=== PATIENT | female | born 1960 | race Caucasian/White ===

== ENCOUNTER → 2018-01-07 10:28 | Outpatient (CLI) | payer MEDICARE, SELFPAY | PROVIDERS: Visit Provider Physician Assistant | DX: R82.90 Unspecified abnormal findings in urine (principal) | CPT/HCPCS: 87086 ==

== ENCOUNTER → 2018-01-08 07:11 | Outpatient (CLI) | payer MEDICARE, SELFPAY ==
[2018-01-08 08:12] LABS: Add Manual Diff / Slide Review NO; Basophils Percent Auto 0.7 % (0-2); Eosinophils Percent Auto 2.7 % (2-4); Hematocrit 49.6 % (36-46); Hemoglobin 16.7 g/dL (12.0-16.0); Lymphocytes Percent Auto 28.3 % (25-40); Mean Corpuscular HGB Conc 33.7 % (30-36); Mean Corpuscular Hemoglobin 31.6 PG (26-34); Mean Corpuscular Volume 93.7 fL (80-100); Monocytes Percent Auto 9.5 % (3-14); Neutrophils Absolute Auto 4300 /uL (3000-5900); Neutrophils Percent Auto 58.8 % (50-75); Platelet Count 227 X10^3/uL (150-400); Red Blood Cell Count 5.29 X10^6/uL (4.0-5.2); Red Cell Distribution Width 13.8 % (11.6-14.8); White Blood Cell Count 7.4 X10^3/uL (4.5-11.0)
[2018-01-08 08:24] LABS: Alanine Aminotransferase 20 IU/L (9-52); Albumin 4.3 g/dL (3.5-5.0); Albumin Globulin Ratio 1.4 (1.0-2.8); Alkaline Phosphatase 130 U/L (38-126); Amylase 89 U/L (30-110); Aspartate Aminotransferase 19 IU/L (14-36); BUN Creatinine Ratio 31.7 (6-22); Bilirubin Total 0.4 mg/dL (0.2-1.3); Blood Urea Nitrogen 19 mg/dL (7-17); C-Reactive Protein Quant < 0.5 mg/dL (<1.0); Calcium 9.7 mg/dL (8.4-10.2); Carbon Dioxide 34 mmol/L (22-32); Chloride 101 mmol/L (98-107); Estimated Glomerular Filt Rate > 60.0 mL/min (>60); Globulin 3.1 g/dL (1.7-4.1); Glucose 71 mg/dL (70-100); HEMOLYSIS < 15 (0-50); Lipase 141 U/L (23-300); Potassium 4.4 mmol/L (3.4-5.1); Sodium 143 mmol/L (137-145); Total Protein 7.4 g/dL (6.3-8.2)
[2018-01-08 08:30] LABS: Erythrocyte Sedimentation Rate 1 MM/HR (0-20)
[2018-01-08 09:19] LABS: Hepatitis B Surface Antigen NEGATIVE s/c (NEGATIVE)
[2018-01-08 09:36] LABS: Hep C Virus Ab w/Reflex Quant NEGATIVE s/c (NEGATIVE)
== END ==
PROVIDERS: Visit Provider Physician Assistant
DX: R10.9 Unspecified abdominal pain (principal)
CPT/HCPCS: 36415; 80053; 82150; 83690; 85025; 85651; 86140; 86803; 87340

== ENCOUNTER → 2018-01-11 07:40 | Outpatient (CLI) | payer MEDICARE, SELFPAY ==
--- NOTE | 2018-01-11 07:42 | DI.US.S_ITS ---
PROCEDURE: US ABDOMEN COMPLETE INDICATIONS: PAIN TECHNIQUE: Real-time scanning was performed of the abdominal and retroperitoneal organs, with image documentation. COMPARISON: [facility], CT, ABDOMEN/PELVIS WITH CONTRAST, 02/02/2012, 23:04. [facility], CT, ABDOMEN/PELVIS WITH CONTRAST, 02/09/2012, 12:11. [facility], US, ABDOMEN COMPLETE, 01/28/2012, 12:10. FINDINGS: Liver: Liver is normal in size and homogeneous in echotexture. Gallbladder: Gallbladder has been removed. No pericholecystic fluid. Biliary ducts: Intrahepatic bile ducts are non-dilated. Extrahepatic bile duct caliber measures 9.8 mm. Normal is 6-7 mm or less in diameter, or 10 mm or less post-cholecystectomy. Pancreas: Visualized portions of the pancreas are sonographically normal. Spleen: Spleen is normal in size and homogeneous in echotexture. Kidneys: Kidneys are normal in size and echotexture. Right kidney measures 11.3 cm long; left kidney measures 9.3 cm long. No hydronephrosis or nephrolithiasis. No solid masses. There is a 13 x 11 x 12 mm focus hypoechogenicity within the posterior inferior cortex, suggestive of cyst. Aorta: Visualized aorta is normal in caliber at less than 3 cm. Iliacs: Proximal common iliac arteries are normal in caliber at less than 2.5 cm. IVC: Intrahepatic inferior vena cava is patent. Miscellaneous: No free abdominal fluid. IMPRESSION: 1. No visualized cause of acute pain. 2. Cholecystectomy. There is mild prominence of the common bile duct. This is suspected to be post surgical sequela. However, prior exam dated 02/09/12 also demonstrated biliary dilation with a biliary stent. If clinical concern is present, recommend correlation to laboratory enzyme values. Dictated by: Andreina Amin M.D. on 01/11/2018 at 9:14 Approved by: Andreina Amin M.D. on 01/11/2018 at 9:17
== END ==
PROVIDERS: Visit Provider Physician Assistant
DX: R10.9 Unspecified abdominal pain (principal)
CPT/HCPCS: 76700

== ENCOUNTER → 2018-02-16 06:58 | Outpatient (CLI) | payer MEDICARE, SELFPAY ==
[2018-02-16 09:35] LABS: Vitamin B12 464 pg/mL (239-931)
== END ==
PROVIDERS: Visit Provider Nurse Practitioner
DX: R61 Generalized hyperhidrosis (principal); R10.9 Unspecified abdominal pain; E53.8 Deficiency of other specified B group vitamins
CPT/HCPCS: 36415; 82607; 84443

== ENCOUNTER → 2018-03-09 10:11 | Outpatient (CLI) | payer MEDICARE, SELFPAY ==
--- NOTE | 2018-03-09 10:56 | DI.CT.S_ITS ---
PROCEDURE: CT ABDOMEN PELVIS W CON INDICATIONS: ABDOMINAL PAIN, WEIGHT LOSS, LOSS OF APPETITE TECHNIQUE: After the administration of oral and intravenous contrast, 5 mm thick sections acquired from the diaphragms to the symphysis. 5 mm thick coronal and sagittal reformats were performed. For radiation dose reduction, the following was used: automated exposure control, adjustment of mA and/or kV according to patient size. COMPARISON: [facility], CT, ABDOMEN/PELVIS WITH CONTRAST, 02/09/2012, 12:11. FINDINGS: Image quality: Excellent. ABDOMEN: Lung bases: Lung bases are clear. Heart size is normal. Solid organs: Liver is normal in size and enhancement. Gallbladder surgically absent. Dilated extra and intrahepatic bile ducts are seen however this could be in part due to prior cholecystectomy. Appearance is grossly unchanged to mildly improved since 02/09/12. Pancreas enhances normally. Spleen is normal in size and enhancement. No adrenal nodules. There is bilateral cortical scarring and mild atrophy. No hydronephrosis. Malrotation of right kidney, chronic subcentimeter presumed right renal cyst image 43 although technically too small to characterize definitively. Peritoneum and bowel: Possible esophageal wall thickening at the GE junction although technically nonspecific and further evaluation with endoscopy could be performed. Stomach, small bowel, and colon loops are normal in caliber and wall thickness. No free fluid or air. The appendix is normal. Scattered colonic diverticula scattered air-fluid levels in the small bowel and mildly prominent small bowel loops however no definite obstruction seen at this time. Nodes and vessels: No retroperitoneal or mesenteric adenopathy. Aorta and inferior vena cava are normal in caliber. Miscellaneous: No ventral hernias. PELVIS: Genitourinary: Bladder wall thickness is normal. Miscellaneous: No inguinal hernias or adenopathy. Bones: No suspicious bony lesions. There is diffuse osteopenia. Diffuse discogenic changes No vertebral body compression fractures. IMPRESSION: No specific visualized etiology for unexplained weight loss. Possible distal esophageal wall thickening although limited evaluation due to decompressed status. If there is clinical concern for esophageal neoplasm or esophagitis, endoscopy could be performed for further assessment. Status post cholecystectomy with persistent dilated intrahepatic bile ducts although this appears to be chronic (and mildly improved) and may be related to prior cholecystectomy. Please correlate clinically and with LFTs. Incidental colonic diverticulosis. Mild bilateral renal cortical atrophy set scarring. Dictated by: Rakan Marrero M.D. on 03/09/2018 at 12:34 Approved by: Rakan Marrero M.D. on 03/09/2018 at 12:42
== END ==
PROVIDERS: Visit Provider Nurse Practitioner
DX: R10.9 Unspecified abdominal pain (principal); R63.0 Anorexia; R63.4 Abnormal weight loss; K57.10 Diverticulosis of small intestine without perforation or abscess without bleeding; Z90.49 Acquired absence of other specified parts of digestive tract
CPT/HCPCS: 74177; Q9967